=== PATIENT | male | born 1955 ===

== ENCOUNTER 2018-02-04 14:06 | Emergency (ER) | payer MEDICAID ==
[2018-02-04] MEDS ORDERED: 0.9 % SODIUM CHLORIDE 1000ML 1,000 ML IV PRN (14:14)
[2018-02-04] MEDS ORDERED: ASPIRIN 81 MG CHEWABLE TABLET PO ONE (14:14)
[2018-02-04] MEDS ORDERED: DILTIAZEM 25MG/5ML VIAL IV ONE ×2 (14:17→14:53)
--- NOTE | 2018-02-04 14:27 | Emergency Department Record ---
History of Present Illness - General Chief Complaint: Chest Pain Stated Complaint: MALLORY,CHEST PAIN Time Seen by Provider: 02/04/18 14:13 Source: Patient, RN notes reviewed - History of Present Illness Initial Comments: SOB and chest pain which started yesterday and his fast heart rate started yesterday and he had to sleep sitting up and he has had atrial fib before and on coumadin and back surgery about 4 weeks ago and his coumadin was rechecked recently and 2.2 per patient. 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 Atrial fib started in may 2017 and he said he has had three heart caths over 3-4 years and last one at [facility] about 2 years ago. PMH DM, tobacco use,copd MD Complaint: Chest pain Onset/Timin -: Days(s) Pain Location: Substernal Quality: Dull Treatments Prior to Arrival: Aspirin (81 mg this am) - Related Data Allergies Allergy/AdvReac Type Severity Reaction Status Date / Time Penicillins Allergy Severe Mouth and Verified 02/04/18 14:11 throat swells; hives Review of Systems Reviewed: No additional complaints except as noted below Constitutional: Reports: As per HPI. Denies: Chills, Fever, Malaise, Night sweats, Weakness, Weight change Eyes: Reports: As per HPI. Denies: Eye discharge, Eye pain, Photophobia, Vision change ENT: Reports: As per HPI. Denies: Congestion, Dental pain, Ear pain, Epistaxis , Hearing loss, Throat pain Respiratory: Reports: As per HPI, Dyspnea. Denies: Cough, Hemoptysis, Stridor, Wheezes Cardiovascular: Reports: As per HPI, Chest pain, Dyspnea on exertion, Paroxysmal nocturnal dyspnea. Denies: Arrhythmia, Edema, Murmurs, Orthopnea, Palpitations, Rheumatic Fever, Syncope Endocrine: Reports: As per HPI. Denies: Fatigue, Heat or cold intolerance, Polydipsia, Polyuria Gastrointestinal: Reports: As per HPI. Denies: Abdominal pain, Constipation, Diarrhea, Hematemesis, Hematochezia, Melena, Nausea, Vomiting Genitourinary: Reports: As per HPI. Denies: Dysuria, Frequency, Hematuria, Incontinence, Retention, Testicular pain, Testicular mass, Urgency Musculoskeletal: Reports: As per HPI. Denies: Arthralgia, Back pain, Gout, Joint swelling, Myalgia, Neck pain Skin: Reports: As per HPI. Denies: Bruising, Change in color, Change in hair/ nails, Lesions, Pruritus, Rash Neurological: Reports: As per HPI. Denies: Abnormal gait, Confusion, Headache, Numbness, Paresthesias, Seizure, Tingling, Tremors, Vertigo, Weakness Psychiatric: Reports: As per HPI. Denies: Anxiety, Auditory hallucinations, Depression, Homicidal thoughts, Suicidal thoughts, Visual hallucinations Hematological/Lymphatic: Reports: As per HPI. Denies: Anemia, Blood Clots, Easy bleeding, Easy bruising, Swollen glands Physical Exam - General General Appearance: Alert, Oriented x3, Cooperative, Mild distress - Head Head exam: Normal inspection - Eye Eye exam: Normal appearance, PERRL Pupils: Normal accommodation - ENT ENT exam: Normal exam, Mucous membranes moist, Normal external ear exam, Normal orophraynx, TM's normal bilaterally Ear exam: Normal external inspection. negative: External canal tenderness Nasal Exam: Normal inspection. negative: Discharge, Sinus tenderness Mouth exam: Normal external inspection, Tongue normal Teeth exam: Normal inspection. negative: Dental caries Throat exam: Normal inspection. negative: Tonsillar erythema, Tonsillar exudate - Neck Neck exam: Normal inspection, Full ROM. negative: Tenderness - Respiratory Respiratory exam: Normal lung sounds bilaterally. negative: Respiratory distress - Cardiovascular Cardiovascular Exam: Tachycardia - GI/Abdominal GI/Abdominal exam: Soft, Normal bowel sounds. negative: Tenderness - Rectal Rectal exam: Deferred - exam: Deferred - Extremities Extremities exam: Normal inspection, Full ROM, Normal capillary refill. negative: Tenderness - Back Back exam: Reports: Normal inspection, Full ROM. Denies: Muscle spasm, Rash noted, Tenderness - Neurological Neurological exam: Alert, Normal gait, Oriented X3, Reflexes normal - Psychiatric Psychiatric exam: Normal affect, Normal mood - Skin Skin exam: Dry, Intact, Normal color, Warm Course - Reevaluation(s) Reevaluation #1: discussed case with Dr. Moffett. 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 02/04/18 16:51 Reevaluation #3: discussed case with Dr. Munoz and will transfer to [facility] 02/04/18 16:59 Medical Decision Making - Data Complexity MDM Data: X-Ray Ordered and/or Reviewed (cardiomegaly) - Lab Data Result diagrams: 02/04/18 14:20 02/04/18 14:20 Disposition Clinical Impression: Atrial fibrillation with rapid ventricular response Chest pain Qualifiers: Chest pain type: unspecified Qualified Code(s): R07.9 - Chest pain, unspecified Disposition: Acute Care Hospital Transfer Condition: (3) Guarded Forms: Patient Portal Access Time of Disposition: 16:53 Quality - Quality Measures Quality Measures: N/A - Blood Pressure Screening Does Patient Have Any of the Following: No, Active Dx of HTN Blood Pressure Classification: Hypertensive Reading Systolic Measurement: 131 Diastolic Measurement: 114 Screening for High Blood Pressure: Patient Exclusion, Hx of HTN [G9744]
[2018-02-04 14:30] LABS: BASO % 0.7 % (0-6); EOS % 2.6 % (0-6); GRAN % 64.3 % (47-80); HEMATOCRIT 46.5 % (42.0-52.0); HEMOGLOBIN 14.7 gm/dl (14.0-18.0); LYMPH % 23.6 % (16-45); MEAN CELL VOLUME 95.7 fl (81-97); MEAN CORPUSCULAR HEMOGLOBIN 30.2 pg (27-33); MEAN CORPUSCULAR HGB CONC 31.6 g/dl (32-36); MEAN PLATELET VOLUME 11.4 fl (7.4-10.4); MONO % 8.8 % (0-9); PLATELET COUNT 163 K/uL (130-400); RED BLOOD COUNT 4.86 M/uL (4.40-5.70); RED CELL DISTRIBUTION WIDTH 14.2 % (11.5-14.5)
[2018-02-04 14:41] LABS: BLOOD UREA NITROGEN 14 mg/dL (8-23); CREATININE 0.6 mg/dL (0.7-1.2); EST GLOMERULAR FILTRATION RATE > 60 mL/min
[2018-02-04 14:44] LABS: GLUCOSE,RANDOM 206 mg/dL (74-109)
[2018-02-04 14:45] LABS: INR 3.7; PARTIAL THROMBOPLASTIN TIME 40.6 SECONDS (24.5-39.1); PROTHROMBIN TIME (PATIENT) 40.8 SECONDS (9.5-12.1)
[2018-02-04 14:49] LABS: CKMB 2.9 ng/mL (<6.73)
[2018-02-04] MEDS ORDERED: DILTIAZEM HCL 125 MG in 0.9 % SODIUM CHLORIDE 100ML 100 ML IV SCH (15:15)
--- NOTE | 2018-02-06 22:59 | RADIOLOGY REPORT ---
EXAM: CHEST 1 VIEW HISTORY: SHORTNESS OF BREATH AND CHEST PAIN. TECHNIQUE: AP upright portable chest. COMPARISON: None. FINDINGS: Heart size is at about the upper limits of normal allowing for the AP positioning. Left base somewhat poorly seen through the heart without a lateral view. Elsewhere, no acute infiltrate seen. No pleural effusion or pneumothorax evident. If symptoms persist, short-term follow-up suggested, preferably upright PA and lateral when clinically feasible. IMPRESSION: 1. LEFT BASE POORLY SEEN THROUGH THE HEART. 2. OTHERWISE, THE AP PORTABLE CHEST APPEARS ESSENTIALLY NEGATIVE. JOB NUMBER: [id number] [facility]
== END 2018-02-04 18:51 | disposition short-term general hospital (02) ==
LOC: ER 14:06
DX: I48.0 Paroxysmal atrial fibrillation (principal); R06.02 Shortness of breath; E11.9 Type 2 diabetes mellitus without complications; J44.9 Chronic obstructive pulmonary disease, unspecified; Z87.891 Personal history of nicotine dependence
CPT/HCPCS: 71045; 80048; 82553; 84484; 85025; 85379; 85610; 85730; 93005; 93010; 96365; 96366; 96375; 99285

== ENCOUNTER 2018-02-26 13:33 | Emergency (ER) | payer MEDICAID ==
--- NOTE | 2018-02-26 13:53 | Emergency Department Record ---
History of Present Illness - General Chief Complaint: Arrythmia/Palpitations Stated Complaint: HEART ISSUES Time Seen by Provider: 02/26/18 13:45 Source: Patient Mode of Arrival: Ambulatory Limitations: No limitations - History of Present Illness Initial Comments: The patient is here due to feeling like his heart is racing for the last 3 days at least. He may have had it for 2-3 weeks. The patient also feels that he is fatigued and slightly winded. He does have a hx of Afib and recently was here in the ER and transferred to [facility] where he had a cardioversion. He also had his Sotolol increased at that time. The patient is on Coumadin also for the same issues. MD Complaint: Palpitations, Rapid heart beat Onset/Timin -: Days(s) Arrythmia History: Atrial fibrillation - Related Data Allergies Allergy/AdvReac Type Severity Reaction Status Date / Time Penicillins Allergy Severe Mouth and Verified 02/26/18 13:52 throat swells; hives Review of Systems Constitutional: Denies: Chills, Fever Eyes: Denies: Eye discharge ENT: Denies: Congestion Respiratory: Denies: Cough Cardiovascular: Reports: Dyspnea on exertion, Palpitations. Denies: Chest pain Endocrine: Reports: Fatigue Gastrointestinal: Denies: Diarrhea Genitourinary: Denies: Hematuria Musculoskeletal: Denies: Arthralgia Past Medical History - SOCIAL HISTORY Smoking Status: Current every day smoker Drug Use: None - RESPIRATORY Hx Respiratory Disorders: Yes Hx Asthma: Yes Hx COPD: Yes - CARDIOVASCULAR Hx Cardio Disorders: Yes Hx Hypertension: Yes - NEURO Hx Neuro Disorders: No - GI Hx GI Disorders: Yes Comment:: chronic constipation - Hx Genitourinary Disorders: No - ENDOCRINE Hx Endocrine Disorders: Yes Hx Diabetes: Yes - MUSCULOSKELETAL Hx Musculoskeletal Disorders: No - PSYCH Hx Psych Problems: No - HEMATOLOGY/ONCOLOGY Hx Hematology/Oncology Disorders: No Family Medical History Hx Cancer: Father Hx Diabetes: Father Hx Heart Disease: Father, Brother/Sister Hx HTN: Father Physical Exam - General General Appearance: Alert, Oriented x3, Cooperative, No acute distress - Head Head exam: Atraumatic, Normocephalic, Normal inspection - Eye Eye exam: Normal appearance, PERRL - ENT Throat exam: Normal inspection. negative: Tonsillar erythema, Tonsillar exudate - Neck Neck exam: Normal inspection, Full ROM. negative: Tenderness - Respiratory Respiratory exam: Normal lung sounds bilaterally. negative: Respiratory distress - Cardiovascular Cardiovascular Exam: Irregular rhythm. negative: Regular rate, Normal rhythm - GI/Abdominal GI/Abdominal exam: Soft, Normal bowel sounds. negative: Tenderness - Extremities Extremities exam: Normal inspection, Full ROM, Normal capillary refill. negative: Tenderness - Neurological Neurological exam: Alert. negative: Motor sensory deficit Course - Reevaluation(s) Reevaluation #1: The patient is doing much better at this time. His HR is 100-110 and he is feeling better with very stable vital signs. 02/26/18 14:26 Reevaluation #2: The patient continues to do well and is pain free with a controlled HR. I did discuss the case with Dr. Baker at [facility] and he does accept the patient for transfer. 02/26/18 14:46 Medical Decision Making - Data Complexity MDM Data: Labs Ordered and/or Reviewed, EKG Ordered and/or Reviewed - Lab Data Result diagrams: 02/26/18 13:55 02/26/18 13:55 - EKG Data -: EKG Interpreted by Me EKG: Unchanged From Previous (Rapid Afib at 158.) Disposition Disposition: Transfer Clinical Impression: Atrial fibrillation with rapid ventricular response Disposition: Acute Care Hospital Transfer Transfer To: [facility] Reason For Transfer: Cardiology Accepting Physician: Time Discussed w/Accepting Physician: 14:47 Condition: (2) Stable Forms: Patient Portal Access Time of Disposition: 14:47 Quality - Quality Measures Quality Measures: N/A - Blood Pressure Screening View Details: Yes Does Patient Have Any of the Following: Active Dx of HTN Blood Pressure Classification: Hypertensive Reading Systolic Measurement: 120 Diastolic Measurement: 110 Screening for High Blood Pressure: Patient Exclusion, Hx of HTN [G9744]
[2018-02-26] MEDS: ASPIRIN 325 MG TABLET PO ONE (13:59)
[2018-02-26 14:04] LABS: BASO % 0.7 % (0-6); EOS % 2.6 % (0-6); GRAN % 58.6 % (47-80); HEMATOCRIT 46.6 % (42.0-52.0); HEMOGLOBIN 14.9 gm/dl (14.0-18.0); LYMPH % 28.7 % (16-45); MEAN PLATELET VOLUME 11.2 fl (7.4-10.4); MONO % 9.4 % (0-9); PLATELET COUNT 179 K/uL (130-400); RED BLOOD COUNT 4.96 M/uL (4.40-5.70); RED CELL DISTRIBUTION WIDTH 14.1 % (11.5-14.5); WHITE BLOOD COUNT W/O DIFF 7.2 K/uL (4.2-12.2)
[2018-02-26] MEDS: DILTIAZEM 25MG/5ML VIAL IV ONE (14:04)
[2018-02-26 14:12] LABS: BLOOD UREA NITROGEN 15 mg/dL (8-23); CREATININE 0.7 mg/dL (0.7-1.2); EST GLOMERULAR FILTRATION RATE > 60 mL/min
[2018-02-26 14:14] LABS: GLUCOSE,RANDOM 296 mg/dL (74-109)
[2018-02-26 14:16] LABS: INR 1.7; PARTIAL THROMBOPLASTIN TIME 32.6 SECONDS (24.5-39.1); PROTHROMBIN TIME (PATIENT) 18.3 SECONDS (9.5-12.1)
[2018-02-26 14:17] LABS: CREATINE PHOSPHOKINASE 56 U/L (39-308)
[2018-02-26 14:20] LABS: CKMB 2.4 ng/mL (<6.73)
[2018-02-26] MEDS: DILTIAZEM HCL 125 MG in 0.9 % SODIUM CHLORIDE 100ML 100 ML IV SCH (14:21)
== END 2018-02-26 16:00 | disposition short-term general hospital (02) ==
LOC: ER 13:33
DX: I48.0 Paroxysmal atrial fibrillation (principal); R53.83 Other fatigue; J44.9 Chronic obstructive pulmonary disease, unspecified; I10 Essential (primary) hypertension; E11.9 Type 2 diabetes mellitus without complications; F17.210 Nicotine dependence, cigarettes, uncomplicated; Z79.01 Long term (current) use of anticoagulants
CPT/HCPCS: 80048; 82550; 82553; 84484; 85025; 85610; 85730; 93005; 93010; 96365; 96366; 96375; 99285

== ENCOUNTER 2018-07-16 20:00 | Emergency (ER) | payer MEDICAID ==
[2018-07-16] MEDS ORDERED: ONDANSETRON HCL IV 4 MG/2 ML VIAL IVP ONE (20:10)
[2018-07-16] MEDS ORDERED: MORPHINE SULFATE 10 MG/ML VIAL IVP ONE (20:10)
--- NOTE | 2018-07-16 20:17 | Emergency Department Record ---
History of Present Illness - General Chief Complaint: Fall Injury Stated Complaint: FALL INJURY Time Seen by Provider: 07/16/18 20:10 Source: Patient Mode of Arrival: Ambulatory Limitations: No limitations - History of Present Illness Initial Comments: 63 yo male presents to ED for evaluation of RUQ/Right lower rib pain that began following a [id number] getting into the shower. Patient reports pain with movement and elevation of the left upper extremity. Patient denies injury to the head or neck. Patient denies numbness/tingling or weakness. Patient does take Warfarin for atrial fibrillation. 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 Place Fall Occurred: Home Loss of Consciousness: None Prolonged Down Time?: No Symptoms Prior to Fall: None Location: Chest, Abdomen Severity: Moderate Quality: Aching Associated Symptoms: Abdominal pain, Chest pain - Fraser Coma Scale Eye Response: (4) Open spontaneously Motor Response: (6) Obeys commands Verbal Response: (5) Oriented Fraser Total: 15 - Related Data Home Medications Medication Instructions Recorded Confirmed Last Taken Furosemide [Lasix] 20 mg PO DAILY 07/16/18 07/16/18 07/16/18 Pravastatin Sodium [Pravachol] 50 mg PO QHS 07/16/18 07/16/18 07/16/18 Previous Rx's Medication Instructions Recorded Hydrocodone/APAP 7.5/325Mg [[place] 1 each PO Q6H PRN #10 tab 07/16/18 7.5MG/325Mg] Allergies Allergy/AdvReac Type Severity Reaction Status Date / Time Penicillins Allergy Severe Mouth and Verified 07/16/18 20:05 throat swells; hives enoxaparin sodium AdvReac Intermediate Rash Verified 07/16/18 20:52 [From Lovenox] Review of Systems Constitutional: Denies: Chills, Fever, Malaise, Night sweats Eyes: Denies: Eye discharge, Eye pain ENT: Denies: Congestion, Ear pain Respiratory: Denies: Cough, Dyspnea Cardiovascular: Reports: Chest pain. Denies: Dyspnea on exertion Endocrine: Denies: Fatigue, Heat or cold intolerance Gastrointestinal: Reports: Abdominal pain. Denies: Nausea, Vomiting Genitourinary: Denies: Incontinence, Retention Musculoskeletal: Denies: Arthralgia, Back pain, Gout, Joint swelling Skin: Denies: Bruising, Change in color Neurological: Denies: Abnormal gait, Confusion, Headache, Seizure Psychiatric: Denies: Anxiety Hematological/Lymphatic: Reports: Easy bleeding, Easy bruising. Denies: Anemia , Blood Clots Past Medical History - SOCIAL HISTORY Smoking Status: Current every day smoker Drug Use: None - RESPIRATORY Hx Respiratory Disorders: Yes Hx Asthma: Yes Hx COPD: Yes - CARDIOVASCULAR Hx Cardio Disorders: Yes Hx Hypertension: Yes - NEURO Hx Neuro Disorders: No - GI Hx GI Disorders: Yes Comment:: chronic constipation - Hx Genitourinary Disorders: No - ENDOCRINE Hx Endocrine Disorders: Yes Hx Diabetes: Yes - MUSCULOSKELETAL Hx Musculoskeletal Disorders: No - PSYCH Hx Psych Problems: No - HEMATOLOGY/ONCOLOGY Hx Hematology/Oncology Disorders: No Family Medical History Hx Cancer: Father Hx Diabetes: Father Hx Heart Disease: Father, Brother/Sister Hx HTN: Father Physical Exam - General General Appearance: Alert, Oriented x3, Cooperative, Moderate distress Limitations: No limitations - Head Head exam: Atraumatic, Normocephalic, Normal inspection Head exam detail: negative: Abrasion, Contusion, Abrams's sign, General tenderness, Hematoma, Laceration - Eye Eye exam: Normal appearance. negative: Conjunctival injection, Periorbital swelling, Periorbital tenderness, Scleral icterus - ENT Ear exam: negative: Auricular hematoma, Auricular trauma Nasal Exam: negative: Active bleeding, Discharge, Dried blood, Foreign body Mouth exam: negative: Drooling, Laceration, Muffled voice, Tongue elevation - Neck Neck exam: Normal inspection. negative: Meningismus, Tenderness - Respiratory Respiratory exam: Normal lung sounds bilaterally, Chest wall tenderness (Right lower ribs laterally). negative: Rales, Respiratory distress, Rhonchi, Stridor - Cardiovascular Cardiovascular Exam: Regular rate, Normal rhythm, Normal heart sounds - GI/Abdominal GI/Abdominal exam: Soft, Tenderness (TTP over the RUQ region on examination, no ecchymosis or abrasions are present.). negative: Rebound, Rigid - Rectal Rectal exam: Deferred - exam: Deferred - Extremities Extremities exam: Normal inspection. negative: Calf tenderness, Pedal edema, Tenderness - Back Back exam: Denies: CVA tenderness (R), CVA tenderness (L) - Neurological Neurological exam: Alert, Normal gait, Oriented X3 - Psychiatric Psychiatric exam: Normal affect, Normal mood - Skin Skin exam: Normal color. negative: Abrasion Type of lesion: negative: abrasion Course - Reevaluation(s) Reevaluation #1: 07/16/18 20:43 Laboratory studies were reviewed: GFR 44 (new from previous) INR 3.6 Hgb 12.3 HCT 37.3 Reevaluation #2: 07/16/18 21:03 Patient is back from CT imaging, reports that his pain symptoms have improved from 06/10 to 02/08. CT results are pending. Reevaluation #3: 07/16/18 21:42 CT Abdomen/Pelvis w/o contrast: No acute traumatic injury identified. CT Chest: No acute traumatic injury identified (2) 2,5 mm non-calcified nodules to the RUL-recommend CT follow-up in 12 months Patient and family members were updated on all results as well as recommendation for follow-up in 4-[address] imaging of the lungs. All questions were answered, and the patient appears stable for discharge at this time with [place] as needed for pain symptoms. Medical Decision Making - Lab Data Result diagrams: 07/16/18 20:22 07/16/18 20:22 Disposition Disposition: Discharge Clinical Impression: Chest wall contusion Qualifiers: Encounter type: initial encounter Laterality: right Qualified Code(s): S20.211A - Contusion of right front wall of thorax, initial encounter Disposition: Home, Self-Care Condition: (2) Stable Instructions: Fall Prevention for Older Adults (ED) Additional Instructions: Return to ED if your symptoms worsen or if you have any concerns. [place] as directed. Follow-up with your family doctor in 3-5 days as directed. Repeat CT imaging of the chest in 4-6 months re: pulmonary nodules x 2 right upper lung castañeda Prescriptions: Hydrocodone/APAP 7.5/325Mg [[place] 7.5MG/325Mg] 1 each PO Q6H PRN #10 tab PRN Reason: Pain - Mod To Severe (5-10) Forms: Patient Portal Access Time of Disposition: 21:52 Quality - Quality Measures Quality Measures: N/A - Blood Pressure Screening Does Patient Have Any of the Following: No Blood Pressure Classification: Pre-Hypertensive BP Reading Systolic Measurement: 131 Diastolic Measurement: 79 Screening for High Blood Pressure: < Pre-Hypertensive BP, F/U Documented > [ [id number]] Pre-Hypertensive Follow-up Interventions: Referral to alternative/primary care provider.
[2018-07-16 20:27] LABS: BASO % 0.7 % (0-6); EOS % 3.8 % (0-6); GRAN % 59.2 % (47-80); HEMATOCRIT 37.3 % (42.0-52.0); HEMOGLOBIN 12.3 gm/dl (14.0-18.0); LYMPH % 27.5 % (16-45); MEAN CELL VOLUME 97.4 fl (81-97); MEAN CORPUSCULAR HEMOGLOBIN 32.1 pg (27-33); MEAN PLATELET VOLUME 10.4 fl (7.4-10.4); MONO % 8.8 % (0-9); PLATELET COUNT 248 K/uL (130-400); RED BLOOD COUNT 3.83 M/uL (4.40-5.70); RED CELL DISTRIBUTION WIDTH 14.1 % (11.5-14.5); WHITE BLOOD COUNT W/O DIFF 7.1 K/uL (4.2-12.2)
[2018-07-16 20:37] LABS: BILIRUBIN,TOTAL 0.2 mg/dL (0.2-1.0); CREATININE 1.7 mg/dL (0.7-1.2); TOTAL PROTEIN 7.1 g/dL (6.6-8.7)
[2018-07-16 20:39] LABS: INR 3.6
[2018-07-16 20:42] LABS: ALB/GLOB RATIO 1.4 (1.1-1.8); ALBUMIN 4.1 g/dL (4.0-5.0)
--- NOTE | 2018-07-18 14:32 | CT SCAN REPORT ---
DATE: 07/16/2018 at 8:49 p.m. EXAM: CHEST CT WITHOUT CONTRAST. HISTORY: THE PATIENT FELL WITH RIGHT UPPER QUADRANT AND RIGHT LATERAL CHEST INJURY. SLIPPED AND FELL IN THE TUB. TECHNIQUE: Axial CT scan of the chest performed without intravenous contrast. Preliminary report provided by [facility]. COMPARISON: No prior chest CT. Comparison is made with a chest x-ray dated 01/2018. ENCOUNTER: Initial. FINDINGS: No pneumothorax identified on either side. There is some minor streaky atelectasis or infiltrate in the right upper lobe lateral to the superior aspect of the right hilum. There are also four tiny nodules seen in the right upper lobe. The two largest each measure about 4.0 mm in size, and the two smaller each measure about 2.0 mm in size. Follow-up chest CT in a year 's time is suggested to reassess. Heart size is normal. Some coronary artery calcification is present. No pleural or pericardial effusion evident. Apparent relatively large peripherally calcified gallstone in the gallbladder measuring about 2.6 cm in size. Please see the abdomen CT report from today for a description of the upper abdominal findings. No definite chest wall hematoma identified. No definite right rib fracture identified. Mild spurring in the thoracic spine. Slight concavity of the superior endplate of T9 is likely chronic in nature with prominent spurring involving the superior endplate of T9 as well. Old films could confirm. A small amount of relatively symmetric-appearing breast tissue is seen consistent with mild gynecomastia. IMPRESSION: 1. NO RIGHT LATERAL CHEST WALL HEMATOMA OR DEFINITE RIGHT RIB FRACTURE IDENTIFIED. NO PNEUMOTHORAX IS SEEN. 2. CORONARY ARTERY CALCIFICATION. 3. FOUR SMALL NODULES IN THE RIGHT UPPER LOBE, THE LARGEST ABOUT 4.0 MM IN SIZE. FOLLOW-UP CHEST CT IN A YEAR'S TIME IS SUGGESTED. 4. SPURRING IN THE THORACIC SPINE. MILD CONCAVITY OF THE SUPERIOR ENDPLATE OF T9 IS LIKELY CHRONIC. OLD FILMS COULD CONFIRM. 5. APPARENT APPROXIMATELY 2.6 CM PERIPHERALLY CALCIFIED GALLSTONE WITHIN THE GALLBLADDER. 6. APPARENT MILD GYNECOMASTIA. J[facility]BER: [id number] [facility]
--- NOTE | 2018-07-18 15:01 | CT SCAN REPORT ---
DATE: 07/16/2018 at 8:53 p.m. EXAM: CT OF THE ABDOMEN AND PELVIS WITHOUT CONTRAST. HISTORY: THE PATIENT SLIPPED AND FELL IN TUB WITH PAIN IN THE UPPER RIGHT ABDOMEN. TECHNIQUE: Axial CT scan of the abdomen and pelvis performed without oral or intravenous contrast. Preliminary report provided by [facility]. COMPARISON: No prior CT of the abdomen or pelvis. ENCOUNTER: Initial. FINDINGS: There is an oval, peripherally calcified gallstone within the gallbladder about 2.6 cm in size. No additional finding seen to suggest acute cholecystitis currently. No intrarenal calculi or hydronephrosis on either side. No hydroureter seen on either side as well. No definite ureteral calculus seen on either side, and no bladder calculus evident. There is a small-bowel anastomosis in the right lower quadrant, and correlation with the specifics of the prior bowel surgery history is suggested. Appendix not clearly seen and may be surgically absent as well. There is mild dilatation of the small bowel at the level of the anastomosis which may just be postoperative in nature with no convincing evidence of small-bowel obstruction. Evaluation of the bowel and viscera is very limited without oral or intravenous contrast. Given this limitation, no definite hepatic, splenic, adrenal, pancreatic, or renal mass identified on either side. There does appear to be diffuse fatty infiltration of the liver. Minor diverticulosis on the left side of the colon, but no diverticulitis evident. Minor prostate calcification. Small periumbilical anterior abdominal wall hernia containing adipose tissue but no bowel. No free intraperitoneal air or free intraperitoneal fluid identified. Some normal-sized retroperitoneal nodes are seen, but no definite retroperitoneal adenopathy identified. Advanced degenerative disc disease at the lumbosacral interspace. Facet joint arthropathy in the lower lumbar spine as well. No lateral abdominal wall hematoma evident. IMPRESSION: 1. CHOLELITHIASIS. 2. PRIOR SMALL-BOWEL SURGERY, RIGHT LOWER QUADRANT. PROBABLE APPENDECTOMY WELL. 3. SMALL PERIUMBILICAL ANTERIOR ABDOMINAL WALL HERNIA CONTAINING ADIPOSE TISSUE BUT NO BOWEL. 4. ADVANCED DEGENERATIVE DISC DISEASE AT THE LUMBOSACRAL INTERSPACE. 5. MINOR DIVERTICULOSIS ON THE LEFT SIDE OF THE COLON, BUT NO DIVERTICULITIS EVIDENT. 6. DIFFUSE FATTY INFILTRATION OF THE LIVER. JOB NUMBER: [id number] [facility]
== END 2018-07-16 22:11 | disposition home or self-care (01) ==
LOC: ER 20:00
DX: S20.211A Contusion of right front wall of thorax, initial encounter (principal); R10.11 Right upper quadrant pain; J44.9 Chronic obstructive pulmonary disease, unspecified; E11.9 Type 2 diabetes mellitus without complications; I10 Essential (primary) hypertension; Z79.01 Long term (current) use of anticoagulants; W18.2XXA Fall in (into) shower or empty bathtub, initial encounter; Y93.E1 Activity, personal bathing and showering; Y92.002 Bathroom of unspecified non-institutional (private) residence as the place of occurrence of the external cause
CPT/HCPCS: 99284 ×2; 96374; 96375; 85025; 85610; 80053; 71250; 74176; J2405; J2270

== ENCOUNTER 2018-12-11 23:12 | Emergency (ER) | payer MEDICAID ==
[2018-12-11] MEDS ORDERED: IPRATROPIUM/ALBUTEROL (0.5MG/3MG) NEB INH ONE (23:15)
--- NOTE | 2018-12-11 23:21 | Emergency Department Record ---
History of Present Illness - General Chief Complaint: Chest Pain Stated Complaint: CHEST PAIN Time Seen by Provider: 12/11/18 23:14 Source: Patient, Family Mode of Arrival: Ambulatory Limitations: No limitations - History of Present Illness Initial Comments: 63 yo male presents with dypnea with some chest pain for the last 8 hours. He reports he has a history of COPD, CAD, CHF. His initial oxygen saturation was 65% on room air on arrival. He has had upper respiratory symptoms the last few days. He is a former smoker. He did have back surgery three weeks ago at [facility]. He was on Lovenex then and is back on his Coumadin. He has noticed about 2 days of leg swelling as well. He was able to work today but he said he was short of breath during the day. 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 He thinks his last atrial fibrillation was last fall. MD Complaint: Chest pain, Other (dypnea for 8 hours) -: Hour(s) (8) Onset: During rest Pain Location: Substernal Pain Radiation: None Severity: Severe Quality: Other Consistency: Constant Improves With: Nothing Worsens With: Exertion, Inspiration, Movement Other Symptoms: Cough Treatments Prior to Arrival: None - Related Data Allergies Allergy/AdvReac Type Severity Reaction Status Date / Time Penicillins Allergy Severe Mouth and Verified 12/11/18 23:24 throat swells; hives enoxaparin sodium AdvReac Intermediate Rash Verified 12/11/18 23:24 [From Lovenox] Review of Systems Constitutional: Denies: Chills, Fever, Malaise, Weakness Eyes: Denies: Eye discharge, Eye pain, Photophobia, Vision change ENT: Reports: Congestion Respiratory: Reports: Cough, Dyspnea. Denies: Hemoptysis, Stridor, Wheezes Cardiovascular: Reports: Chest pain, Dyspnea on exertion, Edema, Palpitations. Denies: Syncope Endocrine: Reports: Fatigue Gastrointestinal: Reports: Nausea, Vomiting. Denies: Diarrhea Genitourinary: Denies: Dysuria, Frequency, Hematuria Musculoskeletal: Denies: Arthralgia, Back pain, Myalgia Skin: Denies: Bruising, Change in color, Rash Neurological: Denies: Confusion, Headache Psychiatric: Denies: Anxiety Hematological/Lymphatic: Denies: Easy bleeding, Easy bruising Past Medical History - SOCIAL HISTORY Smoking Status: Current every day smoker Drug Use: None - RESPIRATORY Hx Respiratory Disorders: Yes Hx Asthma: Yes Hx COPD: Yes - CARDIOVASCULAR Hx Cardio Disorders: Yes Hx Hypertension: Yes - NEURO Hx Neuro Disorders: No - GI Hx GI Disorders: Yes Comment:: chronic constipation - Hx Genitourinary Disorders: No - ENDOCRINE Hx Endocrine Disorders: Yes Hx Diabetes: Yes - MUSCULOSKELETAL Hx Musculoskeletal Disorders: No - PSYCH Hx Psych Problems: No - HEMATOLOGY/ONCOLOGY Hx Hematology/Oncology Disorders: No Family Medical History Hx Cancer: Father Hx Diabetes: Father Hx Heart Disease: Father, Brother/Sister Hx HTN: Father Physical Exam - General General Appearance: Alert, Oriented x3, Cooperative, Moderate distress, Anxious , Other (Obvious dyspnea) Limitations: No limitations - Head Head exam: Atraumatic, Normal inspection - Eye Eye exam: Normal appearance, PERRL. negative: Conjunctival injection - ENT ENT exam: Normal exam Ear exam: Normal external inspection Nasal Exam: Normal inspection Mouth exam: Normal external inspection Throat exam: Normal inspection - Neck Neck exam: Normal inspection - Respiratory Respiratory exam: Accessory muscle use, Decreased breath sounds, Prolonged expiratory, Respiratory distress, Rhonchi, Wheezes. negative: Normal lung sounds bilaterally - Cardiovascular Cardiovascular Exam: Tachycardia - GI/Abdominal GI/Abdominal exam: Soft. negative: Tenderness - Rectal Rectal exam: Deferred - exam: Deferred - Extremities Extremities exam: Pedal edema - Back Back exam: Denies: CVA tenderness (R), CVA tenderness (L) - Neurological Neurological exam: Alert, Oriented X3 - Psychiatric Psychiatric exam: Normal affect, Normal mood - Skin Skin exam: Dry, Intact, Normal color, Warm Course - Reevaluation(s) Reevaluation #1: EKG EKG #1: 23:17 Rate: 92 Rhythm: sinus [place]: Left Intervals: Normal ST segments: LVH, non specific changes Prior: 02/26/18 atrial fibrillation 12/11/18 23:21 12/11/18 23:25 The patient was placed on BiPap. His saturations improved to 90's. His work of breathing improved 12/11/18 23:27 Initial BP 226/109 Nitro drip will be started with his clinically examination consistent with heart failure and his significant HTN. 12/11/18 23:37 Oxygen saturations remaining in the 90%'s. Will try to wean the FiO2 215/117 BP on repeat. Nitro drip initiated 12/11/18 23:38 The CBC was reviewed. No significant abnormalities. 12/11/18 23:45 ABG 7.32 pCO2 57, pO2 183, 97% Sat. On FiO2 70% BMP K is 4.6, Glucose is 280. His work up breathing, chest discomfort, and general clinically picture are improved BP 187/90 with NitroDrip 12/11/18 23:49 INR is 3.4 12/11/18 23:50 Troponin is normal Pro-BNP is 347 Examination with some rhonchi and wheezing Repeat EKG ordered now that he is clinically improved 12/11/18 23:51 EKG EKG #2: Rate: 86 Rhythm: Sinus [place]: Left Intervals: Normal ST segments: No acute abnormality Prior: #1 BP156/85 [facility] was contacted to initiate transfer 145/79 BP will decrease Nitro drip. 12/12/18 00:15 12/12/18 00:31 BiPap 14/7 50% FiO2 50% The patient is off the Nitrodrip NitroPaste placed 140/73. Clinically work of breathing is relaxed. 12/12/18 00:37 12/12/18 00:50 Dr Willoughby accepts the patient for step down unit as [facility] Decision Making - Lab Data Result diagrams: 12/11/18 23:25 12/11/18 23:25 Critical Care Time Critical Care Time: Yes Total Critical Care Time: 85 Disposition Disposition: Transfer Clinical Impression: Hypoxia, Dyspnea, CHF (congestive heart failure), Hypertensive emergency, COPD (chronic obstructive pulmonary disease) Disposition: Acute Care Hospital Transfer Transfer To: [facility] Reason For Transfer: Acute respiratory failure Accepting Physician: Lisette Time Discussed w/Accepting Physician: 00:51 Condition: (2) Stable Forms: Patient Portal Access Time of Disposition: 00:51 Quality - Quality Measures Quality Measures: N/A - Blood Pressure Screening Does Patient Have Any of the Following: Active Dx of HTN Blood Pressure Classification: Hypertensive Reading Systolic Measurement: 145 Diastolic Measurement: 79 Screening for High Blood Pressure: Patient Exclusion, Hx of HTN [[id number]]
[2018-12-11] MEDS ORDERED: NITROGLYCERIN/D5W 50 MG/250 ML ML IV SCH (23:30)
[2018-12-11 23:31] LABS: HEMATOCRIT 45.3 % (42.0-52.0); HEMOGLOBIN 14.1 gm/dl (14.0-18.0); MEAN CORPUSCULAR HEMOGLOBIN 30.2 pg (27-33); MEAN CORPUSCULAR HGB CONC 31.1 g/dl (32-36); MEAN PLATELET VOLUME 10.9 fl (7.4-10.4); PLATELET COUNT 231 K/uL (130-400); RED BLOOD COUNT 4.67 M/uL (4.40-5.70); RED CELL DISTRIBUTION WIDTH 14.2 % (11.5-14.5); WHITE BLOOD COUNT W/O DIFF 12.9 K/uL (4.2-12.2)
[2018-12-11 23:37] LABS: ARTERIAL BLOOD GAS HCO3 28.6 mmol/L (18-23); ARTERIAL BLOOD GAS PCO2 56.8 mmHg (35-48); ARTERIAL BLOOD GAS pH 7.32 (7.35-7.45); CARBOXYHEMOGLOBIN 0.1 % (0-1.5); METHEMOGLOBIN 0.1 % (0.0-1.5); O2 HEMOGLOBIN 96.8 % vol (94-99); TOTAL HEMOGLOBIN 12.6 g/dl (14-18)
[2018-12-11 23:38] LABS: ALLEN TEST NOT DONE
[2018-12-11 23:39] LABS: BLOOD UREA NITROGEN 15 mg/dL (8-23); EST GLOMERULAR FILTRATION RATE > 60 mL/min
[2018-12-11 23:40] LABS: TOTAL PROTEIN 8.4 g/dL (6.6-8.7)
[2018-12-11] MEDS ORDERED: ONDANSETRON HCL IV 4 MG/2 ML VIAL IVP ONE (23:40)
[2018-12-11 23:42] LABS: GLUCOSE,RANDOM 280 mg/dL (74-109); INR 3.4; PARTIAL THROMBOPLASTIN TIME 54.4 SECONDS (24.5-39.1); PROTHROMBIN TIME (PATIENT) 33.3 SECONDS (9.5-12.1)
[2018-12-11 23:45] LABS: ALB/GLOB RATIO 1.4 (1.1-1.8); ALBUMIN 4.9 g/dL (4.0-5.0); ALKALINE PHOSPHATASE 86 U/L (40-129); ALT/SGPT 70 U/L (<41); AST/SGOT 32 U/L (10.0-50.0)
[2018-12-11] MEDS ORDERED: METHYLPREDNISOLONE PF 125MG/VIAL IVP ONE (23:51)
[2018-12-12] MEDS ORDERED: NITROGLYCERIN 2% OINT 1GM PKT TOP ONE (00:23)
[2018-12-12] MEDS ORDERED: NITROGLYCERIN 0.4 MG TD SCH (10:00)
--- NOTE | 2018-12-13 21:55 | RADIOLOGY REPORT ---
EXAM: CHEST 1 VIEW HISTORY: DIFFICULTY BREATHING AND CHEST PAIN. TECHNIQUE: A single frontal view of the chest. COMPARISON: Chest radiograph 02/04/2018. FINDINGS: Lung apices are not completely imaged. Cardiac silhouette within normal size limits. No focal pulmonary consolidation. No significant pleural fluid collection. No visible pneumothorax. IMPRESSION: 1. LUNG APICES NOT FULLY IMAGED. 2. NO ACUTE LUNG FINDINGS. JOB NUMBER: [id number] MTDD
== END 2018-12-12 01:41 | disposition short-term general hospital (02) ==
LOC: ER 23:12
DX: J96.01 Acute respiratory failure with hypoxia (principal); I16.0 Hypertensive urgency; J44.9 Chronic obstructive pulmonary disease, unspecified; I50.9 Heart failure, unspecified; I25.10 Atherosclerotic heart disease of native coronary artery without angina pectoris; I10 Essential (primary) hypertension; E11.9 Type 2 diabetes mellitus without complications; Z79.01 Long term (current) use of anticoagulants; F17.210 Nicotine dependence, cigarettes, uncomplicated
CPT/HCPCS: 36600; 71045; 80053; 82375; 82803; 83880; 84484; 85027; 85610; 85730; 93005; 93010; 94640; 94660; 96365; 96366; 96375; 99291; 99292; J2405; J2930